=== PATIENT | female | born 1970 | race Caucasian/White ===

== ENCOUNTER 2020-04-19 18:26 | Emergency (ER) | payer BC, SELFPAY ==
[2020-04-19 18:40] VITALS: BP 139/88; PULSE 101; RESP 14; TEMP 37.4; O2SAT 99
--- NOTE | 2020-04-19 18:40 | ED.WOUNDLAC ---
HPI - Wound/Laceration General Stated Complaint: left hand lac Time Seen by Provider: 04/19/20 18:45 Source: patient and RN notes reviewed Mode of arrival: ambulatory Limitations: no limitations History of Present Illness HPI narrative: 49-year-old male presents concern for left hand laceration. Reports just prior to arrival she was using a new kitchen knife and cut her left hand between the first and second digits. She denies any decreased sensation, strength in any digit or hand. Reports she is not up-to-date on her tetanus Extremity Location: Left: hand Related Data Allergies Allergy/AdvReac Type Severity Reaction Status Date / Time No Known Allergies Allergy Verified 04/19/20 19:02 Review of Systems Review of Systems: Narrative: CONSTITUTIONAL: Denies malaise, chills, sweats, or fever. SKIN: Reports laceration to the left hand between first and second digits MUSCULOSKELETAL: Denies musculoskeletal pain NEUROLOGIC: Denies numbness, weakness All systems reviewed & are unremarkable except as noted in HPI and below PMFSH Comments At time of signature, agree with nursing past medical, surgical, social and family history. There is no relevant family history pertinent to the presenting complaint Exam Narrative: Exam Narrative: GENERAL: Well-appearing, well-nourished, and in no acute distress. HEAD: Normocephalic EYES: PERRLA, conjunctivae clear NECK: Supple. CHEST: Speaks in full sentences. No respiratory distress. HEART: Regular rate and rhythm. Normal and equal peripheral pulses. EXTREMITIES: Left hand and digits of hand have normal strength and sensation. 5/5 strength with digit flexion, extension. Range of motion normal. No clubbing, cyanosis, or edema noted. No tenderness. Normal digital cascade with flexion of fingers, median, ulnar and radial nerve intact. Normal sensation of each side of finger. Can perform 'okay' sign, 'cross over finger test of index and middle fingers' and 'thumbs up' sign. No scissoring. Normal thumb opposition. Good capillary refill and radial pulse. Distal capillary refill less than 3 seconds. SKIN: Warn, dry, intact, pink. 2 cm linear laceration into subcutaneous tissue noted between the first and second digits of the left hand NEURO: Alert and oriented x3. PSYCH: Normal mood and affect Course Course Emergency Course: Patient is aware of diagnosis, understands and agrees to treatment plan. Anticipatory guidance given. Patient agrees to follow-up as directed and is aware of reasons to seek care at the emergency department. Portions of this record may have been created with voice recognition software Vital Signs Vital signs: Reviewed. Procedures Laceration Laceration 1: Date: 04/19/20 Time: 18:52 Site: hand Side (If applicable): left Size (cm): 2 Description: linear Depth: simple, single layer Pre-repair: wound explored and irrigated ====== Skin Level ====== Skin layer closed with: dermabond ====== Subcutaneous Layer ====== ====== Muscle Layer ====== ====== Tendon Layer ====== MDM - Wound/Laceration MDM Narrative Medical decision making narrative: Wound explored for foreign body and copious irrigation provided with no evidence of FB. Discussed the potential of retained foreign body with the patient and signs/symptoms that should prompt the patient to immediately go to the ED for reevaluation. The laceration was identified to be 2 cm in length and located at left hand. The laceration was cleansed with [employer] and no debris was noted. The wound was explored and no foreign bodies were found. There was no evidence of tendon or nerve lacerations. The wound was closed with Dermabond. Anticipatory guidance was provided. Tetanus prophylaxis was given Critical Care Time Critical Care Time Critical Care Time: No Discharge Plan Discharge Clinical Impression: Hand laceration Qualifiers: Encounter typ
[2020-04-19] MEDS: TETANUS,DIPHTHERIA,AC PERTUSSIS ADULT (0.5 ML) BOOSTRIX IM (19:03)
== END 2020-04-19 19:17 | disposition home or self-care (01) ==
PROVIDERS: Emergency Provider Nurse Practitioner; PCP Internal Medicine
DX: S61.412A Laceration without foreign body of left hand, initial encounter (principal); W26.0XXA Contact with knife, initial encounter; Z23 Encounter for immunization
CPT/HCPCS: 12001; 90471; 90715; 99212; G0463

== ENCOUNTER 2020-07-14 14:05 | Emergency (ER) | payer BC, SELFPAY ==
[2020-07-14 14:13] VITALS: BP 136/81; PULSE 71; RESP 16; TEMP 36.8; O2SAT 100
--- NOTE | 2020-07-14 14:29 | PC.NURSE ---
PT TAKEN RADIOLOGY IN WHEELCHAIR
--- NOTE | 2020-07-14 15:06 | ED.FEMALEGU ---
HPI - Female Genitourinary General Chief complaint: Urogenital-Female Stated complaint: Poss UTI Source: patient Mode of arrival: ambulatory Limitations: no limitations History of Present Illness HPI Narrative: Patient is a 50-year-old female who presents complaining of pelvic pressure and reports small amount of blood when wiping x1 day. Patient reports a history of endometrial ablation. Denies dysuria. She denies all other complaints. Patient reports having history of UTI in the past but states has been a while . She denies taking [id number] medications for symptom relief at this time. MD elicited complaint: UTI Related Data Allergies Allergy/AdvReac Type Severity Reaction Status Date / Time No Known Allergies Allergy Verified 07/14/20 14:21 [facility] Past Medical History Medical History (Updated 07/14/20 @ 15:19 by SUMAN Wheeler) No significant past medical history Surgical History Surgical History (Updated 07/14/20 @ 15:13 by SUMAN Wheeler) History of appendectomy Family History Family History (Updated 07/14/20 @ 15:13 by SUMAN Wheeler) Other Pancreatic cancer Social History Social History (Updated 07/14/20 @ 15:14 by SUMAN Wheeler) Smoking status: Never smoker Alcohol intake: current Alcohol use details: Occasional Substance use: never Living arrangements: with family Comments At the time of signature, I have reviewed and agree with nursing past medical, surgical, social, and family history unless otherwise noted. Please see nursing chart for further information. There is no relevant family history pertinent to the presenting complaint. Exam Narrative: Exam Narrative: GENERAL: Well-appearing, well-nourished, and in no acute distress. HEAD: Normocephalic, atraumatic. EYES:No redness or drainage. ENT: Mucous membranes pink and moist. CHEST: No respiratory distress. HEART: Regular rate and rhythm. EXTREMITIES: Normal range of motion. SKIN: Warm, dry, no rash. NEURO: No focal deficits. Alert and oriented x3. Gait steady. PSYCH: Normal affect. No signs of depression or anxiety. Course Vital Signs Vital signs: Vital Signs Temperature 36.8 C 07/14/20 14:13 Pulse Rate 71 07/14/20 14:13 Respiratory Rate 16 07/14/20 14:13 Blood Pressure 136/81 07/14/20 14:13 Pulse Oximetry 100 07/14/20 14:13 Temperature 36.8 C 07/14/20 14:13 Pulse Rate 71 07/14/20 14:13 Respiratory Rate 16 07/14/20 14:13 Blood Pressure 136/81 07/14/20 14:13 Pulse Oximetry 100 07/14/20 14:13 Reviewed-patient is informed that they may have pre-hypertension or hypertension based on a blood pressure reading. I recommend the patient call the primary care provider listed on their discharge instructions or a physician of their choice this week to arrange follow-up for further evaluation of possible pre-hypertension or hypertension. MDM - Female Genitourinary MDM Narrative Medical decision making narrative: Discussed with patient that we will treat her with antibiotics for UTI symptoms, however, patient needs to follow-up with [facility] as blood could be vaginal and patient has a history of endometrial ablation in 2011. Patient agrees with plan of care. Patient is stable for discharge home with outpatient follow-up as discussed. Differential Diagnosis Differential diagnosis: Likely urinary tract infection Lab Data Labs: Urine Glucose Negative Reference Range: Negative Urine Bilirubin Negative Reference Range: Negative Urine Ketone Negative Reference Range: Negative Urine Specific Mcintosh 1.020 Reference Range:1.001-1.035 Urine Blood Negative
== END 2020-07-14 15:26 | disposition home or self-care (01) ==
PROVIDERS: Emergency Provider Nurse Practitioner; PCP Internal Medicine
DX: N39.0 Urinary tract infection, site not specified (principal)
CPT/HCPCS: 81003; 87086; 87088; 99213; G0463